=== PATIENT | male | born 2000 | race Caucasian/White ===

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

== ENCOUNTER 2022-06-29 15:48 | Emergency (ER) | payer SELFPAY ==
[2022-06-29 18:14] LABS: SARS-CoV-2 NAA Rapid Test Not Detected (NotDetected)
== END 2022-06-29 18:28 | disposition home or self-care (01) ==
LOC: ERS 15:48
DX: H66.001 Acute suppurative otitis media without spontaneous rupture of ear drum, right ear (principal); H73.91 Unspecified disorder of tympanic membrane, right ear; F17.290 Nicotine dependence, other tobacco product, uncomplicated; Z20.822 Contact with and (suspected) exposure to COVID-19
CPT/HCPCS: 99283

== ENCOUNTER 2023-02-23 14:51 | Emergency (ER) | payer SELFPAY | END 2023-02-23 15:55 | disposition home or self-care (01) | LOC: ERS 14:51 | DX: H92.01 Otalgia, right ear (principal) | CPT/HCPCS: 99282 ==